=== PATIENT | male | born 1980 | race Caucasian/White ===

== ENCOUNTER 2022-07-22 15:55 | Emergency (ER) | payer MEDICAID ==
--- NOTE | 2022-07-22 16:24 | NUR ---
CALLED TO TRIAGE NO ANSWER
--- NOTE | 2022-07-22 16:35 | NUR ---
CALLED FOR TRIAGE NO ANSWER. PER ADMITTING OFFICE, PATIENT WAS SEEN LEAVING ED. PATIENT LEFT WITHOUT BEING SEEN
== END 2022-07-22 16:35 | disposition left against medical advice (07) ==
LOC: SED 15:55
DX: R10.9 Unspecified abdominal pain (principal); Z53.21 Procedure and treatment not carried out due to patient leaving prior to being seen by health care provider